=== PATIENT | male | born 1980 | race Caucasian/White ===

== ENCOUNTER 2017-12-26 08:55 | Emergency (ER) | payer OTHER ==
[2017-12-26 09:04] VITALS: BP 110/64; PULSE 68; TEMP 98.3; BMI 26.2
--- NOTE | 2017-12-26 10:20 | PDOC ---
History of Present Illness - General Chief Complaint: Injury Stated Complaint: FALL/HEAD INJ/FORGING DIE FINISHER SHUNT Time Seen by Provider: 12/26/17 09:10 History Source: Patient Exam Limitations: No Limitations - History of Present Illness Initial Comments: 12/26/17 10:31 37-year-old male status post mechanical fall. Patient this morning was standing up and stumbled backwards striking the back of his head on the dresser. Patient had no LOC or complaints. 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 Staff states no change in mentation the patient has no complaints presently. Occurred: reports: just prior to arrival Severity: reports: mild Pain Location: reports: none Method of Injury: Yes: fall Modifying Factors: improves with: None Associated Symptoms (Fall): denies symptoms Past History - Travel Traveled outside of the country in the last 30 days: No - Past Medical History Allergies/Adverse Reactions: Allergies Allergy/AdvReac Type Severity Reaction Status Date / Time No Known Allergies Allergy Verified 12/26/17 08:58 Home Medications: Ambulatory Orders Aripiprazole [Abilify] 10 mg PO HS 12/26/17 Baclofen 20 mg PO TID 12/26/17 Carbamazepine [Carbamazepine ER] 400 mg PO BID 12/26/17 Clonazepam 1 mg PO AM 12/26/17 Clonazepam 1.5 mg PO HS 12/26/17 Montelukast Na [Singulair -] 10 mg PO HS 12/26/17 Mv-Mn/FA/Coq10/Lycopene/Lutein [Theragran-M Premier 50+ Caplet] 1 each PO DAILY 12/26/17 Naltrexone HCl 75 mg PO BID 12/26/17 Polyethylene Glycol 3350 [Glycolax] 17 gm PO BID 12/26/17 Propylene Glycol/Peg 400 [Systane Ultra 0.4-0.3% Eye Drp] 10 ml OP DAILY COPD: No Psychiatric Problems: Yes (ANXEITY,C.PALSY,) Other medical history: CONGINITAL CATARACTS - Surgical History Neurologic Surgery: Yes (FORGING DIE FINISHER SHUNT) - Suicide/Smoking/Psychosocial Hx Smoking History: Never smoked Information on smoking cessation initiated: No Hx Alcohol Use: No Drug/Substance Use Hx: No Substance Use Type: None Patient Lives Alone: No Lives with/in: [facility] Review of Systems - Review of Systems Able to Perform ROS?: No Constitutional: No: Symptoms Reported HEENTM: No: Symptoms Reported Respiratory: No: Symptoms reported Cardiac (ROS): No: Symptoms Reported ABD/GI: No: Symptoms Reported : No: Symptoms Reported Musculoskeletal: No: Symptoms Reported Integumentary: No: Symptoms Reported Neurological: No: Symptoms reported Endocrine: No: Symptoms Reported Hematologic/Lymphatic: No: Symptoms Reported *Physical Exam - Vital Signs Last Vital Signs Temp Pulse Resp BP Pulse Ox 98.3 F 68 18 110/64 100 12/26/17 08:59 12/26/17 08:59 12/26/17 08:59 12/26/17 08:59 12/26/17 08:59 - Physical Exam General Appearance: Yes: Nourished, Appropriately Dressed. No: Apparent Distress HEENT: positive: EOMI, TORIE, TMs Normal. negative: Pale Conjunctivae Neck: positive: Supple. negative: Tender, Normal Thyroid Respiratory/Chest: positive: Lungs Clear, Normal Breath Sounds. negative: Respiratory Distress, Accessory Muscle Use Cardiovascular: positive: Regular Rhythm, Regular Rate. negative: Murmur Gastrointestinal/Abdominal: positive: Soft. negative: Tenderness Musculoskeletal: negative: CVA Tenderness Extremity: positive: Normal Capillary Refill. negative: Pedal Edema Integumentary: positive: Normal Color, Warm, Moist. negative: Swelling Neurologic: positive: Normal Mood/Affect, Motor Strength 5/5 (moves all extremeties actively) ED Treatment Course - RADIOLOGY Radiology Studies Ordered: Category Date Time Status HEAD CT WITHOUT CONTRAST [CT] Stat CT Scan 12/26/17 09:12 Completed Medical Decision Making - Medical Decision Making 12/26/17 09:30 Patient here for evaluation of closed head injury. Patient was getting up when he stumbled hitting a dresser with his back of his head. Patient had no obvious or physical findings on exam. Patient with history of FORGING DIE FINISHER shunt. Patient ordered for head CT to rule out abnormality intracranial pathology. 12/26/17 10:[address] negative. When compared to 2009 there has been no changes. Again noted FORGING DIE FINISHER shunt slightly collapsed recommending neurology follow-up. Report of head CT given staff and states patient sees the neurologist every 3 months *DC/Admit/Observation/Transfer Diagnosis at time of Disposition: Closed head injury Qualifiers: Encounter type: initial encounter Qualified Code(s): S09.90XA - Unspecified injury of head, initial encounter - Discharge Dispostion Disposition: HOME Condition at time of disposition: Good - Referrals - Patient Instructions Printed Discharge Instructions: DI for Closed Head Injury Additional Instructions: Please follow-up with the house physician and also show copy of the CAT scan report to them. If patient develops any headache, dizziness or vomiting please return to the ED otherwise patient has no restrictions. - Post Discharge Activity
== END 2017-12-26 10:30 | disposition home or self-care (01) ==
LOC: JER 08:55
DX: S09.8XXA Other specified injuries of head, initial encounter (principal); W01.190A Fall on same level from slipping, tripping and stumbling with subsequent striking against furniture, initial encounter; Y93.89 Activity, other specified; Y92.193 Bedroom in other specified residential institution as the place of occurrence of the external cause; Y99.8 Other external cause status; Z86.69 Personal history of other diseases of the nervous system and sense organs; Z98.2 Presence of cerebrospinal fluid drainage device; G80.8 Other cerebral palsy; F41.9 Anxiety disorder, unspecified
CPT/HCPCS: 70450-TC; 99282-25

== ENCOUNTER 2018-08-03 18:24 | Emergency (ER) | payer OTHER ==
[2018-08-03 18:57] VITALS: BP 109/75; PULSE 69; TEMP 97.4; BMI 26.2
--- NOTE | 2018-08-03 19:18 | PDOC ---
History of Present Illness - General History Source: Care Provider Exam Limitations: No Limitations - History of Present Illness Initial Comments: 08/03/18 19:24 The patient is a 37 year old male with a past medical history of cerebral palsy here today for evaluation of right knee pain. History primarily from patients web press roll tender. The patients web press roll tender reports that she found the patient on his knees holding his walker. She reports that his right knee was red and slightly warm which has since decreased in severity. The web press roll tender reports that patient was able to ambulate after his fall and that he is at his baseline mental status. Patient denies headache, lightheadedness. Denies fever, chills. Denies chest pain, shortness of breath. Denies nausea, vomiting, diarrhea, abdominal pain. 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 PCP: Ulisses Mercado <Tam Carney - Last Filed: 08/03/18 19:24> <Arun Valentin - Last Filed: 08/03/18 20:05> - General Chief Complaint: Injury Stated Complaint: RT KNEE INJURY Time Seen by Provider: 08/03/18 19:09 Past History <Tam Carney - Last Filed: 08/03/18 19:24> - Past Medical History COPD: No Psychiatric Problems: Yes (impulse control disorder) Seizures: Yes Other medical history: cerebral palsy, hydrocephalus, seborrhea, dermatitis - Surgical History Neurologic Surgery: Yes (WELDING INSPECTOR SHUNT) - Suicide/Smoking/Psychosocial Hx Smoking History: Never smoked Have you smoked in the past 12 months: No Information on smoking cessation initiated: No Hx Alcohol Use: No Drug/Substance Use Hx: No Substance Use Type: None <Arun Valentin - Last Filed: 08/03/18 20:05> - Past Medical History Allergies/Adverse Reactions: Allergies Allergy/AdvReac Type Severity Reaction Status Date / Time No Known Allergies Allergy Verified 12/26/17 08:58 Home Medications: Ambulatory Orders Aripiprazole [Abilify] 2 mg PO HS 12/26/17 Baclofen 20 mg PO TID 12/26/17 Carbamazepine [Carbamazepine ER] 400 mg PO BID 12/26/17 Clonazepam 1 mg PO AM 12/26/17 Clonazepam 1.5 mg PO HS 12/26/17 Montelukast Na [Singulair -] 10 mg PO HS 12/26/17 Polyethylene Glycol 3350 [Glycolax] 17 gm PO BID 12/26/17 Propylene Glycol/Peg 400 [Systane Ultra 0.4-0.3% Eye Drp] 2 drop OP DAILY Ammonium Lactate Cream [Lac-Hydrin] 1 applic TP BID 08/03/18 Bacitracin - [Bacitracin Topical Ointment -] 1 applic TP BID 08/03/18 Hydrocortisone Acetate [Hydrocortisone] 1 applic TP BID 08/03/18 Ketoconazole 2% Shampoo [Nizoral 2% Shampoo -] 1 applic TP ASDIR 08/03/18 Mineral Oil/Pet Hy-Phl [Aquaphor] 1 applic TP TID 08/03/18 Multivitamin [Multiple Vitamins] 1 each PO DAILY 08/03/18 Polyvinyl Alcohol [Artificial Tears] 1 drop OU BID 08/03/18 Review of Systems - Review of Systems Able to Perform ROS?: Yes Comments:: 08/03/18 19:24 A complete review of 10 out of 10 review of systems is taken and is negative apart from what is previously mentioned below and in the HPI. <Tam Carney - Last Filed: 08/03/18 19:24> *Physical Exam - Vital Signs Last Vital Signs Temp Pulse Resp BP Pulse Ox 97.4 F L 69 18 109/75 97 08/03/18 18:24 08/03/18 18:24 08/03/18 18:24 08/03/18 18:24 08/03/18 18:24 - Physical Exam Comments: 08/03/18 19:25 Vitals: Triage vital signs reviewed General Appearance: No acute distress, well nourished, well developed Head: Atraumatic Eyes: Pupils equal reactive round, extraocular movement intact Neck: Supple; No nuchal rigidity Chest Wall: Nontender Cardiac: Regular rate and rhythm, no murmurs, no rubs, no gallops Lungs: Clear to auscultation bilateral, good air movement bilaterally Abdomen: Soft, nondistended, normal bowel sounds, nontender to palpation Genitourinary: Rectal: Exam deferred Extremities: Full range of motion to all extremities, no cyanosis, clubbing, or edema Skin: Warm and dry, no rashes or lesions, no rash, no petechiae Neuro: Cranial Nerves 2-12 grossly intact, Strength intact to all extremities, Sensation intact to all extremities, Psych: Normal mood, normal affect <Tam Carney - Last Filed: 08/03/18 19:24> - Vital Signs Last Vital Signs Temp Pulse Resp BP Pulse Ox 97.4 F L 69 18 109/75 97 08/03/18 18:24 08/03/18 18:24 08/03/18 18:24 08/03/18 18:24 08/03/18 18:24 <Arun Valentin - Last Filed: 08/03/18 20:05> Moderate Sedation - Procedure Monitoring Vital Signs: Procedure Monitoring Vital Signs Temperature 97.4 F L 08/03/18 18:24 Pulse Rate 69 08/03/18 18:24 Respiratory Rate 18 08/03/18 18:24 Blood Pressure 109/75 08/03/18 18:24 O2 Sat by Pulse Oximetry (%) 97 08/03/18 18:24 <Tam Carney - Last Filed: 08/03/18 19:24> - Procedure Monitoring Vital Signs: Procedure Monitoring Vital Signs Temperature 97.4 F L 08/03/18 18:24 Pulse Rate 69 08/03/18 18:24 Respiratory Rate 18 08/03/18 18:24 Blood Pressure 109/75 08/03/18 18:24 O2 Sat by Pulse Oximetry (%) 97 08/03/18 18:24 <Arun Valentin - Last Filed: 08/03/18 20:05> Medical Decision Making - Medical Decision Making 08/03/18 19:27 The patient is a 37 year old male with a past medical history of cerebral palsy here today for evaluation of right knee pain. <Tam Carney - Last Filed: 08/03/18 19:24> - Medical Decision Making 08/03/18 20:03 Minor knee contusion. No fracture dislocation noted on x-ray. Stable for outpatient follow-up conservative treatment Findings, need for follow-up and strict return instructions discussed. <Arun Valentin - Last Filed: 08/03/18 20:05> *DC/Admit/Observation/Transfer - Attestations Scribe Attestion: 08/03/18 19:25 Documentation prepared by NANCY Oneill, acting as medical auditor for Arun Valentin MD. <Tam Carney - Last Filed: 08/03/18 19:24> - Discharge Dispostion Decision to Admit order: No <Arun Valentin - Last Filed: 08/03/18 20:05> Diagnosis at time of Disposition: Knee contusion Qualifiers: Encounter type: initial encounter Laterality: right Qualified Code(s): S80.01XA - Contusion of right knee, initial encounter - Discharge Dispostion Condition at time of disposition: Stable - Referrals Referrals: Ulisses Mercado [Primary Care Provider] - Ankit Mendes MD [Staff Physician] - - Patient Instructions Additional Instructions: Ice affected knee 20 minutes on 20 minutes off. Okay to alternate over-the- counter Tylenol Motrin as directed on package. If still having pain follow-up with Dr. Mendes orthopedics next week. Return to emergency department for any concerns. Although there was no evidence of any injury to the patient's head you can observe the patient tonight wake him up every 4 hours to ensure he is arousable and acting normally return to ED for any change in behavior severe headache persistent vomiting or for any concerns. - Post Discharge Activity
== END 2018-08-03 20:30 | disposition home or self-care (01) ==
LOC: FER 18:24
DX: S80.01XA Contusion of right knee, initial encounter (principal); G80.9 Cerebral palsy, unspecified; X58.XXXA Exposure to other specified factors, initial encounter; Y93.89 Activity, other specified; Y92.89 Other specified places as the place of occurrence of the external cause; G91.9 Hydrocephalus, unspecified; F63.9 Impulse disorder, unspecified
CPT/HCPCS: 73562-TC-RT-FY; 99282-25

== ENCOUNTER 2018-09-11 22:14 | Emergency (ER) | payer OTHER ==
[2018-09-11 22:26] VITALS: BP 105/54; PULSE 67; TEMP 98.2; BMI 26.9
--- NOTE | 2018-09-11 22:46 | PDOC ---
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 unsure of head injury. Patient complaining of left knee pain patient is here from [facility] with group marketing vp. patient alert speaking and cheerful. patient normally uses a walker in the home however has chronic weakness to legs. neurologist : Kirk PCP: Dr. Lela ZARATE 09/11/18 22:54 09/11/18 23:01 Past History - Past Medical History Allergies/Adverse Reactions: Allergies Allergy/AdvReac Type Severity Reaction Status Date / Time No Known Allergies Allergy Verified 09/11/18 22:26 Home Medications: Ambulatory Orders Aripiprazole [Abilify] 2 mg PO HS 12/26/17 Baclofen 20 mg PO TID 12/26/17 Carbamazepine [Carbamazepine ER] 400 mg PO BID 12/26/17 Clonazepam 1.5 mg PO HS 12/26/17 Montelukast Na [Singulair -] 10 mg PO HS 12/26/17 Polyethylene Glycol 3350 [Glycolax] 17 gm PO BID 12/26/17 Propylene Glycol/Peg 400 [Systane Ultra 0.4-0.3% Eye Drp] 2 drop OP DAILY Ammonium Lactate Cream [Lac-Hydrin] 1 applic TP BID 08/03/18 Bacitracin - [Bacitracin Topical Ointment -] 1 applic TP BID 08/03/18 Hydrocortisone Acetate [Hydrocortisone] 1 applic TP BID 08/03/18 Ketoconazole 2% Shampoo [Nizoral 2% Shampoo -] 1 applic TP ASDIR 08/03/18 Mineral Oil/Pet Hy-Phl [Aquaphor] 1 applic TP TID 08/03/18 Multivitamin [Multiple Vitamins] 1 each PO DAILY 08/03/18 Polyvinyl Alcohol [Artificial Tears] 1 drop OU BID 08/03/18 COPD: No Psychiatric Problems: Yes (impulse control disorder) Seizures: Yes - Surgical History Neurologic Surgery: Yes (INFECTIOUS DISEASE PHYSICIAN SHUNT) - Suicide/Smoking/Psychosocial Hx Smoking History: Never smoked Have you smoked in the past 12 months: No Information on smoking cessation initiated: No Hx Alcohol Use: No Drug/Substance Use Hx: No Substance Use Type: None Review of Systems - Review of Systems Able to Perform ROS?: Yes Is the patient limited Israeli proficient: No Constitutional: No: Symptoms Reported, See HPI, Chills, Diaphoresis, Fever, Loss of Appetite, Malaise, Night Sweats, Weakness, Weight Stable, Unintentional Wgt. Loss, Unexplained wgt Loss, Other Musculoskeletal: Yes: Muscle Weakness (lower extremity which is chronic in nature), Other (knee pain) Neurological: No: Symptoms reported, See HPI, Headache, Numbness, Paresthesia, Pre-Existing Deficit, Seizure, Tingling, Tremors, Weakness, Unsteady Gait, Ataxia, Dizziness, Other *Physical Exam - Vital Signs Last Vital Signs Temp Pulse Resp BP Pulse Ox 98.2 F 67 17 105/54 L 100 09/11/18 22:24 09/11/18 22:24 09/11/18 22:24 09/11/18 22:24 09/11/18 22:24 - Physical Exam General Appearance: Yes: Appropriately Dressed, Other (developmental delay) HEENT: positive: Other (normocephalic. no evidence of trauma) Cardiovascular: positive: Regular Rhythm, Regular Rate Musculoskeletal: positive: Normal Inspection (left knee . mobility of knee is limited due to spasticity). negative: Vertebral Tenderness Extremity: positive: Normal Capillary Refill, Normal Inspection, Normal Range of Motion Integumentary: positive: Normal Color, Dry, Warm (cheerful and interactive with staff) Neurologic: positive: Alert Moderate Sedation - Procedure Monitoring Vital Signs: Procedure Monitoring Vital Signs Temperature 98.2 F 09/11/18 22:24 Pulse Rate 67 09/11/18 22:24 Respiratory Rate 17 09/11/18 22:24 Blood Pressure 105/54 L 09/11/18 22:24 O2 Sat by Pulse Oximetry (%) 100 09/11/18 22:24 Medical Decision Making - Medical Decision Making A: unwitnessed fall in a developmentally delayed person: left knee pain P: Head CT/ C-spine XRay: high patella. no acute fracture official read pending. 09/12/18 00:16 CT head and c-spine. : There is encephalomalacia and volume loss in the right frontal temporal and parietal lobes suggesting congenital defect, or possibly old infarction. Correlation with history and comparison with prior studies recommended. Shunt catheter in place No cervical spine fracture Patient d/ana back to alf with group marketing vp. *DC/Admit/Observation/Transfer Diagnosis at time of Disposition: Unwitnessed fall Knee contusion Qualifiers: Encounter type: initial encounter Laterality: left Qualified Code(s): S80.02XA - Contusion of left knee, initial encounter - Discharge Dispostion Disposition: HOME - Referrals - Patient Instructions Printed Discharge Instructions: How to Prevent Falls Additional Instructions: you may take tylenol every 4- [address] head and neck is negative Additional Instructions: * Please call your personal physician to report your Emergency Department visit and to report your progress, if any. * If there is no improvement in symptoms in 2 days call your physician. * Return to the Emergency Department for any worsening symptoms. - Post Discharge Activity
--- NOTE | 2018-09-11 23:08 | PDOC ---
*Physical Exam - Vital Signs Last Vital Signs Temp Pulse Resp BP Pulse Ox 98.2 F 67 17 105/54 L 100 09/11/18 22:24 09/11/18 22:24 09/11/18 22:24 09/11/18 22:24 09/11/18 22:24 Medical Decision Making - Medical Decision Making 09/11/18 23:07 Pt seen by Midlevel Provider under my direct supervision Pt interviewed and examined Ancillary studies reviewed I agree with plan as outlined by Midlevel Provider
== END 2018-09-12 00:36 | disposition home or self-care (01) ==
LOC: JER 22:14
DX: S80.02XA Contusion of left knee, initial encounter (principal); W18.39XA Other fall on same level, initial encounter; Y93.89 Activity, other specified; Y92.192 Bathroom in other specified residential institution as the place of occurrence of the external cause; Y99.8 Other external cause status; F42.9 Obsessive-compulsive disorder, unspecified; G80.8 Other cerebral palsy; Q12.0 Congenital cataract; F41.9 Anxiety disorder, unspecified; Z98.2 Presence of cerebrospinal fluid drainage device
CPT/HCPCS: 70450-TC; 72125-TC; 73562-TC-LT-FY; 99283-25

== ENCOUNTER 2018-12-26 22:44 | Emergency (ER) | payer OTHER | END 2018-12-27 00:32 | disposition home or self-care (01) | LOC: FER 12-27 00:32 | DX: S09.90XA Unspecified injury of head, initial encounter (principal); S80.02XA Contusion of left knee, initial encounter; Z95.828 Presence of other vascular implants and grafts; F42.9 Obsessive-compulsive disorder, unspecified; G80.9 Cerebral palsy, unspecified; Q12.0 Congenital cataract ==